=== PATIENT | male | born 1990 | race Caucasian/White ===

== ENCOUNTER 2019-10-12 12:37 | Emergency (ER) | payer MEDICAID, OTHER, SELFPAY ==
[~2019-10-12] VITALS: Ht 188 cm; Wt 93.8 kg
[2019-10-12 13:57] LABS: INFLUENZA A AMPLIFICATION NEGATIVE (NEGATIVE); INFLUENZA B AMPLIFICATION NEGATIVE (NEGATIVE)
--- NOTE | 2019-10-12 16:55 | REP ---
Clinical: Cough and shortness of breath. Technique: PA and lateral. Comparison: 10/25/2009. Findings: Left lower lobe infiltrate compatible with acute pneumonia. Mediastinum and cardiac silhouette normal. No further consolidation. No effusion. No pneumothorax. Skeletal structures intact. Impression: Left lower lobe pneumonia. Follow-up to resolution. Electronically Signed by Bhraath Hutton MD 10/12/2019 04:47 P
[2019-10-12] MEDS ORDERED: AMOX500C PO (17:10)
[2019-10-12] MEDS ORDERED: AMOXICILLIN 500 MG CAP PO ONE (17:15)
[2019-10-12 17:19] VITALS: BP 137/63
== END 2019-10-12 17:33 | disposition home or self-care (01) ==
LOC: M ED 12:37
DX: J18.9 Pneumonia, unspecified organism (principal); F17.210 Nicotine dependence, cigarettes, uncomplicated